=== PATIENT | male | born 1940 | race Caucasian/White ===

== ENCOUNTER 2017-02-08 15:32 | Emergency (ER) | payer OTHER, MEDICARE ==
[2017-02-08] MEDS: ACETAMINOPH W/CODEINE #3 TAB UD PO (16:44)
[2017-02-08] MEDS: GABAPENTIN 100 MG CAP PO (18:59)
== END 2017-02-08 19:24 | disposition home or self-care (01) ==
LOC: M ED 15:32
DX: M79.604 Pain in right leg (principal); E11.9 Type 2 diabetes mellitus without complications; I10 Essential (primary) hypertension; E78.00 Pure hypercholesterolemia, unspecified; M16.11 Unilateral primary osteoarthritis, right hip; M51.36 Other intervertebral disc degeneration, lumbar region; M51.37 Other intervertebral disc degeneration, lumbosacral region; Z79.84 Long term (current) use of oral hypoglycemic drugs
CPT/HCPCS: 72110

== ENCOUNTER → 2017-03-27 | Outpatient (REF) | payer MEDICARE ==
[2017-03-28 11:34] LABS: ANION GAP 8 MEQ/L (8-16); BLOOD UREA NITROGEN 33 MG/DL (7-18); CALCIUM LEVEL 9.5 MG/DL (8.8-10.2); CARBON DIOXIDE LEVEL 29 MEQ/L (21-32); CHLORIDE LEVEL 106 MEQ/L (98-107); CREATININE FOR GFR 1.69 MG/DL (0.70-1.30); ESTIMATED AVERAGE GLUCOSE 192 MG/DL (60-110); GLUCOSE, FASTING 161 MG/DL (70-100); HEMOGLOBIN A1c 8.3 %; SODIUM LEVEL 143 MEQ/L (136-145)
== END ==
LOC: M SFHCCLAY 14:46
DX: E11.9 Type 2 diabetes mellitus without complications (principal)
CPT/HCPCS: 83036

== ENCOUNTER → 2018-06-11 | Outpatient (REF) | payer MEDICARE ==
[~2018-06-11] MED LIST: ACET-716 PO; AMLO10TA5 PO; GLIP5TAB8 PO; LISI-538 PO; MELA3TAB49 PO; METF500T13 PO; SIMV40TA2 PO
[2018-06-11 16:49] LABS: ALBUMIN 4.1 GM/DL (3.2-5.2); BILIRUBIN,TOTAL 0.3 MG/DL (0.2-1.0); CALCIUM LEVEL 9.7 MG/DL (8.8-10.2); CREATININE FOR GFR 1.54 MG/DL (0.70-1.30); GLOMERULAR FILTRATION RATE 46.6 (>42); POTASSIUM SERUM 5.1 MEQ/L (3.5-5.1); TOTAL PROTEIN 7.6 GM/DL (6.4-8.2)
[2018-06-11 17:04] LABS: MALB URINE SIEMENS 10.3 MG/L; MAU/CREAT RATIO 7.3 MCG/MG (0.0-30.0)
[2018-06-11 18:04] LABS: HEMOGLOBIN A1c 6.7 %
== END ==
LOC: M SFHCCLAY 11:12
PROVIDERS: ATTEND Family Medicine
DX: E11.22 Type 2 diabetes mellitus with diabetic chronic kidney disease (principal); N18.3 Chronic kidney disease, stage 3 (moderate)
CPT/HCPCS: 80053; 82043; 83036; G0463

== ENCOUNTER → 2018-06-15 | Outpatient (CLI) | payer MEDICARE ==
--- NOTE | 2018-06-17 12:18 | REP ---
MRI LUMBAR SPINE WITHOUT CONTRAST: HISTORY: Low back pain. Comparison radiographs February 08, 2017. TECHNIQUE: Sagittal and axial T1- and T2-weighted scans are acquired in the usual fashion with and without fat saturation. Sequences include spin echo, turbo spin echo, and STIR imaging sequences. MRI FINDINGS: There is a mild to moderate levoconvex scoliotic curve as seen on the radiographs. Lumbar vertebral body heights are preserved. Alignment is otherwise normal. There is no evidence of spondylolysis. There are subtle 2 mm degenerative spondylolisthesis at L4-5 and no L5-S1. These appear to be unchanged from the radiographs of February 08, 2017. The tip of the conus medullaris is normal in its appearance and position at L1. No extra vertebral abnormality is appreciated. Axial and sagittal images at the L1-L2 demonstrate degenerative narrowing. There is a 2 mm retrolisthesis L1-L2. There is diffuse disc bulging indenting the ventral margin of the thecal sac. No central canal stenosis is seen. No neural foraminal narrowing. At L2-L3, there is minimal ligamentum flavum and facet hypertrophy. Mild disc bulging is seen. No thecal sac compression or neural foraminal narrowing is seen. At L3-L4, there is mild diffuse disc bulging. This flattens the ventral margin of the thecal sac. No central canal stenosis is seen. There is bilateral facet and ligamentum flavum hypertrophy. No neural foraminal narrowing is seen. At L4-5, there is moderate facet and ligamentum flavum hypertrophy bilaterally, right more so than left. There is moderate central canal stenosis due to these factors along with diffuse disc bulging and developmentally short pedicles. Mild bilateral neural foraminal narrowing is seen. In the midline at the L4-5, the thecal sac measures 9 mm. At L5-S1, there is no evidence of disc herniation. Mild central disc bulging is seen. Moderate to advanced facet hypertrophy is seen bilaterally at L5-S1. No central canal stenosis is seen. Neural foramina appear normal. IMPRESSION: Degenerative spondylosis changes. The dominant abnormality is at L4-5 where there is a moderate central canal stenosis. 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 Electronically Signed by Shady Maldonado MD 06/17/2018 02:32 P
== END ==
LOC: M RAD 13:48
PROVIDERS: ATTEND Family Medicine
DX: M43.16 Spondylolisthesis, lumbar region (principal); M43.17 Spondylolisthesis, lumbosacral region; M51.26 Other intervertebral disc displacement, lumbar region; M51.36 Other intervertebral disc degeneration, lumbar region; M48.061 Spinal stenosis, lumbar region without neurogenic claudication

== ENCOUNTER → 2018-10-11 | Outpatient (REF) | payer MEDICARE ==
[2018-10-11 17:04] LABS: ALBUMIN 3.9 GM/DL (3.2-5.2); BILIRUBIN,TOTAL 0.2 MG/DL (0.2-1.0); CALCIUM LEVEL 9.5 MG/DL (8.8-10.2); CHOLESTEROL RISK RATIO 3.021 (<5); CREATININE FOR GFR 1.56 MG/DL (0.70-1.30); GLOMERULAR FILTRATION RATE 45.8 (>35); MAGNESIUM LEVEL 2.2 MG/DL (1.8-2.4); TOTAL PROTEIN 7.1 GM/DL (6.4-8.2)
[2018-10-11 18:10] LABS: HEMOGLOBIN A1c 6.6 %
== END ==
LOC: M SFHCCLAY 10:59
PROVIDERS: ATTEND Family Medicine
DX: E11.22 Type 2 diabetes mellitus with diabetic chronic kidney disease (principal); I10 Essential (primary) hypertension
CPT/HCPCS: 80053; 80061; 83036; 83735; G0463

== ENCOUNTER → 2019-04-18 | Outpatient (REF) | payer MEDICARE ==
[~2019-04-18] MED LIST changes: -SIMV40TA2 PO; +SIMV40TA20 PO
[2019-04-18 16:17] LABS: BASO % 0.4 % (0.0-1.0); EOS # 0.1 10^3/uL (0.0-0.5); EOS % 2.2 % (0.0-3.0); HEMATOCRIT 38.4 % (42.0-52.0); HEMOGLOBIN 12.3 g/dl (13.5-17.5); LYMPH # 1.7 10^3/uL (1.5-5.0); MEAN CORPUSCULAR HEMOGLOBIN 30.7 pg (27.0-33.0); MEAN CORPUSCULAR VOLUME 95.8 fl (80.0-96.0); MONO # 0.4 10^3/uL (0.0-0.8); MONO % 7.2 % (0.0-5.0); NEUTROPHILS # 2.8 10^3/uL (1.5-8.5); NEUTROPHILS % 55.8 % (36.0-66.0); PLATELET COUNT, AUTOMATED 162 10^3/uL (150-450); RED BLOOD COUNT 4.01 10^6/uL (4.30-6.10)
[2019-04-18 16:23] LABS: ALBUMIN 4.1 GM/DL (3.2-5.2); BILIRUBIN,TOTAL 0.3 MG/DL (0.2-1.0); CALCIUM LEVEL 9.5 MG/DL (8.8-10.2); CREATININE FOR GFR 1.54 MG/DL (0.70-1.30); GLOMERULAR FILTRATION RATE 46.5 (>35); POTASSIUM SERUM 4.7 MEQ/L (3.5-5.1); TOTAL PROTEIN 7.4 GM/DL (6.4-8.2)
[2019-04-18 16:53] LABS: HEMOGLOBIN A1c 6.8 %
== END ==
LOC: M SFHCCLAY 09:22
PROVIDERS: ATTEND Family Medicine
DX: E11.22 Type 2 diabetes mellitus with diabetic chronic kidney disease (principal); I10 Essential (primary) hypertension
CPT/HCPCS: 80053; 83036; 85025; G0463

== ENCOUNTER → 2020-01-12 | Outpatient (REF) | payer MEDICARE ==
[~2020-01-12] MED LIST changes: -AMLO10TA5 PO; +AMLO1TAB25 PO
[2020-01-12 18:12] LABS: BASO % 0.5 % (0.0-1.0); EOS # 0.2 10^3/uL (0.0-0.5); EOS % 2.8 % (0.0-3.0); HEMATOCRIT 38.3 % (42.0-52.0); HEMOGLOBIN 11.8 g/dl (13.5-17.5); LYMPH # 2.1 10^3/uL (1.5-5.0); LYMPH % 36.7 % (24.0-44.0); MEAN CORPUSCULAR HEMOGLOBIN 29.9 pg (27.0-33.0); MEAN CORPUSCULAR HGB CONC 30.8 g/dl (32.0-36.5); MEAN CORPUSCULAR VOLUME 97.2 fl (80.0-96.0); MONO # 0.6 10^3/uL (0.0-0.8); MONO % 9.5 % (0.0-5.0); NEUTROPHILS # 2.9 10^3/uL (1.5-8.5); NEUTROPHILS % 50.3 % (36.0-66.0); PLATELET COUNT, AUTOMATED 132 10^3/uL (150-450); RED BLOOD COUNT 3.94 10^6/uL (4.30-6.10); WHITE BLOOD COUNT 5.8 10^3/uL (4.0-10.0)
[2020-01-12 18:57] LABS: BILIRUBIN,TOTAL 0.3 MG/DL (0.2-1.0); CALCIUM LEVEL 9.5 MG/DL (8.8-10.2); CHOLESTEROL RISK RATIO 2.745 (<5); CREATININE FOR GFR 1.49 MG/DL (0.70-1.30); GLOMERULAR FILTRATION RATE 48.2 (>35); POTASSIUM SERUM 5.4 MEQ/L (3.5-5.1); TOTAL PROTEIN 7.3 GM/DL (6.4-8.2)
[2020-01-12 19:01] LABS: HEMOGLOBIN A1c 6.3 %
== END ==
LOC: M SFHCCLAY 11:35
PROVIDERS: ATTEND Family Medicine
DX: E11.22 Type 2 diabetes mellitus with diabetic chronic kidney disease (principal); I12.9 Hypertensive chronic kidney disease with stage 1 through stage 4 chronic kidney disease, or unspecified chronic kidney disease; N18.31 Chronic kidney disease, stage 3a; E78.2 Mixed hyperlipidemia
CPT/HCPCS: 80053; 80061; 83036; 85025; G0463

== ENCOUNTER → 2020-01-15 | Outpatient (CLI) | payer MEDICARE ==
--- NOTE | 2020-01-16 12:23 | ECHO ---
DATE OF PROCEDURE: 01/15/2020 Age: 79 Gender: Male Height: 168 cm Weight: 100 kg REFERRING PHYSICIAN: BAO LOMBARDI DO. INDICATION: Heart murmur. MEASUREMENTS: IVS 1.3 cm LV 4.9 cm LVPW 1.2 cm LA 3.9 cm Aorta 3.6 cm IVC 1.7 cm Mitral E wave velocity 54 cm/s Mitral A wave 58 cm/s E prime septal 5.4 cm/s E prime lateral 8.1 cm/s FINDINGS: This study is of fair technical quality, underlying sinus rhythm. Left ventricle has normal size and overall low normal systolic function, estimate EF around 50% to 55%. Mild left ventricular hypertrophy is noted. Right ventricle is normal size and systolic function. Both atria appear normal. Aortic valve is sclerotic, but mobility seems to be preserved. There are also mild degenerative abnormalities of the mitral valve, but mobility of leaflets is preserved. Tricuspid and pulmonic valves appear normal. No pericardial effusion is noted. Inferior vena cava is of normal size. Aortic root is normal. Aortic arch and abdominal aorta were not visualized. Doppler interrogation of the aortic valve reveals [id number] insufficiency and trivial stenosis with mean gradient 11 mmHg. There is mild mitral insufficiency and mild tricuspid insufficiency. Calculated pulmonary artery pressure is in the high 20s, which corresponds to upper limits of normal values. Mitral inflow pattern and tissue Doppler imaging of the mitral annulus revealed grade 1 diastolic dysfunction. CONCLUSIONS: 1. Study is of fair technical quality, underlying sinus rhythm. 2. Normal left ventricular (LV) size with mild left ventricular hypertrophy (LVH), left ventricular ejection fraction (LVEF) estimated around 50% to 55%. Grade 1 diastolic dysfunction. 3. Aortic sclerosis resulting in trivial stenosis and [id number] insufficiency. 4. Mild mitral and tricuspid insufficiency. 5. Suggestive of normal central venous pressure and normal pulmonary artery pressure. [facility]
== END ==
LOC: M CARPUL 10:28
PROVIDERS: ATTEND Family Medicine
DX: R06.02 Shortness of breath (principal); R01.1 Cardiac murmur, unspecified; I35.2 Nonrheumatic aortic (valve) stenosis with insufficiency

== ENCOUNTER → 2020-05-03 | Outpatient (REF) | payer MEDICARE ==
[~2020-05-03] MED LIST changes: -LISI-538 PO; +LISI20TA33 PO
[2020-05-03 17:02] LABS: CALCIUM LEVEL 9.6 MG/DL (8.8-10.2); CREATININE FOR GFR 1.38 MG/DL (0.70-1.30); GLOMERULAR FILTRATION RATE 52.6 (>35); POTASSIUM SERUM 4.7 MEQ/L (3.5-5.1)
== END ==
LOC: M SFHCCLAY 10:52
PROVIDERS: ATTEND Family Medicine
DX: E11.22 Type 2 diabetes mellitus with diabetic chronic kidney disease (principal); N18.31 Chronic kidney disease, stage 3a
CPT/HCPCS: 80048; 83036; G0463

== ENCOUNTER → 2021-01-21 | Outpatient (REF) | payer MEDICARE ==
[2021-01-21 15:52] LABS: BILIRUBIN,TOTAL 0.3 MG/DL (0.2-1.0); CALCIUM LEVEL 9.9 MG/DL (8.8-10.2); CHOLESTEROL RISK RATIO 2.314 (<5); CREATININE FOR GFR 1.55 MG/DL (0.70-1.30); GLOMERULAR FILTRATION RATE 45.9 (>35); POTASSIUM SERUM 5.2 MEQ/L (3.5-5.1); TOTAL PROTEIN 7.4 GM/DL (6.4-8.2)
[2021-01-21 16:11] LABS: HEMOGLOBIN A1c 6.1 %
== END ==
LOC: M SFHCCLAY 11:08
PROVIDERS: ATTEND Family Medicine
DX: E11.22 Type 2 diabetes mellitus with diabetic chronic kidney disease (principal); E78.2 Mixed hyperlipidemia
CPT/HCPCS: 80053; 80061; 83036; G0463

== ENCOUNTER → 2021-10-27 | Outpatient (REF) | payer MEDICARE ==
[2021-10-27 17:33] LABS: BASO % 0.5 % (0.0-1.0); EOS # 0.1 10^3/uL (0.0-0.5); EOS % 3.4 % (0.0-3.0); HEMATOCRIT 36.2 % (42.0-52.0); HEMOGLOBIN 11.5 g/dl (13.5-17.5); LYMPH # 1.2 10^3/uL (1.5-5.0); LYMPH % 30.1 % (24.0-44.0); MEAN CORPUSCULAR HEMOGLOBIN 30.3 pg (27.0-33.0); MEAN CORPUSCULAR HGB CONC 31.8 g/dl (32.0-36.5); MEAN CORPUSCULAR VOLUME 95.3 fl (80.0-96.0); MONO # 0.3 10^3/uL (0.0-0.8); MONO % 7.6 % (2.0-8.0); NEUTROPHILS # 2.4 10^3/uL (1.5-8.5); NEUTROPHILS % 58.2 % (36.0-66.0); PLATELET COUNT, AUTOMATED 152 10^3/uL (150-450); WHITE BLOOD COUNT 4.1 10^3/uL (4.0-10.0)
[2021-10-27 18:08] LABS: ALBUMIN 3.7 GM/DL (3.2-5.2); BILIRUBIN,TOTAL 0.2 MG/DL (0.2-1.0); CALCIUM LEVEL 9.6 MG/DL (8.8-10.2); CREATININE FOR GFR 1.66 MG/DL (0.70-1.30); FREE T4 0.74 NG/DL (0.76-1.46); GLOMERULAR FILTRATION RATE 42.3 (>35); POTASSIUM SERUM 5.5 MEQ/L (3.5-5.1); THYROID STIMULATING HORMONE 1.63 uIU/ML (0.358-3.740); TOTAL PROTEIN 6.9 GM/DL (6.4-8.2)
[2021-10-27 18:45] LABS: HEMOGLOBIN A1c 6.4 %
== END ==
LOC: M SFHCCLAY 11:07
PROVIDERS: ATTEND Family Medicine
DX: E11.22 Type 2 diabetes mellitus with diabetic chronic kidney disease (principal); I10 Essential (primary) hypertension; R41.3 Other amnesia; R01.1 Cardiac murmur, unspecified

== ENCOUNTER → 2022-06-30 | Outpatient (REF) | payer OTHER ==
[2022-06-30 17:59] LABS: HEMOGLOBIN A1c 6.6 % (4.0-6.0)
[2022-06-30 18:16] LABS: ALBUMIN 3.8 G/DL (3.2-5.2); BILIRUBIN,TOTAL 0.2 MG/DL (0.3-1.2); CALCIUM LEVEL 9.3 MG/DL (8.3-10.6); CREATININE FOR GFR 1.52 MG/DL (0.70-1.30); GLOMERULAR FILTRATION RATE 46.9 (>35); POTASSIUM SERUM 5.7 MMOL/L (3.5-5.1); TOTAL PROTEIN 6.7 G/DL (5.7-8.2)
== END ==
LOC: M SFHCCLAY 10:55
PROVIDERS: ATTEND Family Medicine
DX: E11.22 Type 2 diabetes mellitus with diabetic chronic kidney disease (principal)

== ENCOUNTER → 2023-10-02 | Outpatient (CLI) | payer OTHER ==
[~2023-10-02] MED LIST changes: +GLIP5TAB17 PO; -GLIP5TAB8 PO
== END ==
LOC: M CARPUL 13:53
PROVIDERS: ATTEND Family Medicine
DX: R06.02 Shortness of breath (principal); R01.1 Cardiac murmur, unspecified

== ENCOUNTER → 2024-04-04 | Outpatient (REF) | payer MEDICARE | LOC: M SFHCDERM 16:40 | PROVIDERS: ATTEND Nurse Practitioner Family | DX: C44.121 Squamous cell carcinoma of skin of unspecified eyelid, including canthus (principal) ==

== ENCOUNTER → 2025-01-12 | Outpatient (REF) | payer MEDICARE ==
[2025-01-12 17:50] LABS: CALCIUM LEVEL 9.5 MG/DL (8.3-10.6); CARBON DIOXIDE LEVEL 30.0 MMOL/L (20-31); CHLORIDE LEVEL 103.0 MMOL/L (98-107); CREATININE FOR GFR 1.53 MG/DL (0.70-1.30); GLOMERULAR FILTRATION RATE 44.0 (>35); POTASSIUM SERUM 4.2 MMOL/L (3.5-5.1); SODIUM LEVEL 143.0 MMOL/L (136-145)
[2025-01-12 18:21] LABS: ESTIMATED AVERAGE GLUCOSE 160.0 MG/DL (60-110)
== END ==
LOC: M SFHCCLAY 13:25
PROVIDERS: ATTEND Family Medicine
DX: E11.22 Type 2 diabetes mellitus with diabetic chronic kidney disease (principal); N18.31 Chronic kidney disease, stage 3a